=== PATIENT | female | born 1950 | race Caucasian/White ===

== ENCOUNTER 2017-08-23 11:45 | Day surgery (SDC) | payer MEDICARE ==
[~2017-08-23] VITALS: Ht 170.2 cm; Wt 70.8 kg
[~2017-08-23 11:45] MED LIST: SLEEP AID25 MG
== END 2017-08-23 14:15 | disposition home or self-care (01) ==
LOC: ORSCSDS 11:45
PROVIDERS: Surgery
PROC: 0DJD8ZZ Inspection of Lower Intestinal Tract, Via Natural or Artificial Opening Endoscopic (ICD-10-PCS; principal; 2017-08-23 13:00)
DX: Z12.11 Encounter for screening for malignant neoplasm of colon (principal); F32.9 Major depressive disorder, single episode, unspecified
CPT/HCPCS: J0330; J1980; J2405; Q9968

== ENCOUNTER → 2019-06-29 | Outpatient (CLI) | payer OTHER ==
[2019-06-30 18:06] LABS: HPV 16 Negative (Negative); HPV 18 Negative (Negative); HPV OTHER HR TYPES Negative (Negative)
== END | disposition home or self-care (01) ==
LOC: LAB SHORT 11:36 → LAB 11:36
PROVIDERS: Nurse Practitioner Women's Health
DX: Z12.4 Encounter for screening for malignant neoplasm of cervix (principal)
CPT/HCPCS: 87624; G0123

== ENCOUNTER → 2019-07-21 | Outpatient (CLI) | payer OTHER | END | disposition home or self-care (01) | LOC: PLD 13:46 → LAB SHORT 13:46 | DX: N85.00 Endometrial hyperplasia, unspecified (principal); N95.0 Postmenopausal bleeding; N84.1 Polyp of cervix uteri | CPT/HCPCS: 88305 ==

== ENCOUNTER → 2023-01-27 | Outpatient (CLI) | payer MEDICARE ==
[2023-01-27 10:45] LABS: CHOL/HDL RATIO 4.5; Cholesterol 303 mg/dL (50-200); HDL Cholesterol 67 mg/dL (>39); LDL/HDL RATIO 3.1; Low Density Lipoprotein Chol 208 mg/dL (0-110); Triglycerides 141 mg/dL (30-160); Very Low Density Lipoprot Chol 28 mg/dL (6-32)
== END | disposition home or self-care (01) ==
LOC: LAB SHORT 08:15 → LAB 08:15
PROVIDERS: Family Medicine
DX: E78.5 Hyperlipidemia, unspecified (principal)
CPT/HCPCS: 80061

== ENCOUNTER → 2023-07-22 | Outpatient (CLI) | payer MEDICARE | LOC: LAB 18:48 → LAB SHORT 18:48 | DX: N39.0 Urinary tract infection, site not specified (principal) | CPT/HCPCS: 87086 ==

== ENCOUNTER → 2024-06-26 | Outpatient (CLI) | payer MEDICARE | LOC: LAB SHORT 10:42 → LAB 10:42 | DX: N39.0 Urinary tract infection, site not specified (principal); R31.9 Hematuria, unspecified | CPT/HCPCS: 87077; 87086; 87186 ==